=== PATIENT | female | born 1975 | race Caucasian/White ===

== ENCOUNTER 2016-08-28 11:21 | Emergency (ER) | payer MEDICAID ==
[2016-08-28] MEDS ORDERED: KETOROLAC TROMETHAMINE INJ/PF 30 MG/1 ML SDV IV ONE (11:57)
[2016-08-28] MEDS ORDERED: ONDANSETRON HCL INJ/PF 4 MG/2 ML SDV IV ONE (11:57)
--- NOTE | 2016-08-28 11:58 | ER Document Report ---
ED GI/ - General Chief Complaint: Flank Pain Stated Complaint: RIGHT FLANK PAIN Time Seen by Provider: 08/28/16 11:42 Mode of Arrival: Ambulatory Information source: Patient Notes: Patient presents complaining of right flank pain for the past week. Patient reports nausea and vomiting dating that she spit up once some mucus. Patient denies any fever or diarrhea. Patient does report urinary frequency and dysuria. Patient has a history kidney stones in the past and suspects the same today. TRAVEL OUTSIDE OF THE [place] IN LAST 30 DAYS: No - HPI Patient complains to provider of: Flank pain, Vomiting. No: Abdominal pain, Vaginal pain Onset: Last week Timing/Duration: Persistent Quality of pain: Sharp Pain Level: 5 Location: Right flank. No: RLQ Vaginal bleeding (Compared to normal period): None Associated symptoms: Dysuria, Nausea, Urinary frequency, Vomiting. denies: Constipation, Diarrhea, Fever, Urinary hesitancy Exacerbated by: Denies Relieved by: Denies Similar symptoms previously: Yes Recently seen / treated by doctor: No - Related Data Allergies/Adverse Reactions: latex Allergy (Verified 08/28/16 11:33) cillins Allergy (Uncoded 08/28/16 11:33) Past Medical History - General Information source: Patient Last Menstrual Period: mirena - Social History Smoking Status: Former Smoker Frequency of alcohol use: None Drug Abuse: None Occupation: none Lives with: Family Family History: Reviewed & Not Pertinent Patient has suicidal ideation: No Patient has homicidal ideation: No - Medical History Medical History: Other - MS Pulmonary Medical History: Reports: Hx COPD Renal/ Medical History: Reports: Hx Kidney Stones. Denies: Hx Peritoneal Dialysis Musculoskeltal Medical History: Reports Hx Fibromyalgia Past Surgical History: Reports: Hx Section, Hx Gynecologic Surgery - r fallopian tube removed, Hx Urinary Tract Surgery - lithotripsy, renal stents Review of Systems - Review of Systems Constitutional: Recent illness - pneumonia. denies: Fever EENT: No symptoms reported Cardiovascular: No symptoms reported. denies: Chest pain Respiratory: No symptoms reported. denies: Cough Gastrointestinal: Nausea, Vomiting. denies: Abdominal pain, Diarrhea, Poor appetite Genitourinary: Dysuria, Frequency, Flank pain Female Genitourinary: No symptoms reported. denies: , Vaginal discharge Musculoskeletal: Back pain - right Skin: No symptoms reported Hematologic/Lymphatic: No symptoms reported Neurological/Psychological: No symptoms reported Physical Exam - Vital signs Vitals: Temp Pulse Resp BP Pulse Ox 97.8 F 121 H 20 152/113 H 98 08/28/16 11:31 08/28/16 11:31 08/28/16 11:31 08/28/16 11:31 08/28/16 11:31 - General General appearance: Appears well, Alert In distress: None - HEENT Head: Normocephalic, Atraumatic Eyes: Normal Nasal: Normal Mouth/Lips: Normal Mucous membranes: Normal Neck: Normal, Supple. No: Lymphadenopathy - Respiratory Respiratory status: No respiratory distress Chest status: Nontender Breath sounds: Normal. No: Rales, Rhonchi, Stridor, Wheezing Chest palpation: Normal - Cardiovascular Rhythm: Tachycardia Heart sounds: S1 appreciated, S2 appreciated Murmur: No - Abdominal Inspection: Normal Distension: No distension Bowel sounds: Normal Tenderness: Nontender Organomegaly: No organomegaly - Back Back: CVA tenderness - right - Extremities General upper extremity: Normal inspection, Normal ROM General lower extremity: Normal inspection, Normal ROM - Neurological Neuro grossly intact: Yes Cognition: Normal Cb Coma Scale Eye Opening: Spontaneous [place] Coma Scale Verbal: Oriented [place] Coma Scale Motor: Obeys Commands Cb Coma Scale Total: 15 - Psychological Associated symptoms: Normal affect, Normal mood - Skin Skin Temperature: Warm Skin Moisture: Dry Skin Color: Normal Course - Re-evaluation Re-evalutation: 08/28/16 13:[address] Bernal who recommends CT limited imaging of her flank area to further evaluate her pain today. 08/28/16 14:30 - Vital Signs Vital signs: Temp Pulse Resp BP Pulse Ox 97.7 F 90 20 153/109 H 99 08/28/16 13:06 08/28/16 13:06 08/28/16 13:06 08/28/16 13:06 08/28/16 13:06 - Laboratory Result Diagrams: 08/28/16 12:08 08/28/16 12:08 Laboratory results interpreted by me: 08/28/16 08/28/16 08/28/16 12:08 12:08 12:09 WBC 11.1 H RDW 18.3 H Plt Count 524 H Chloride 108 H Carbon Dioxide 19 L Glucose 118 H Direct Bilirubin 0.5 H Urine Protein 30 H Urine Blood LARGE H Labs- Entire Visit 08/28/16 08/28/16 08/28/16 12:08 12:08 12:08 WBC 11.1 H RBC 4.69 Hgb 13.0 Hct 39.4 MCV 84 MCH 27.7 MCHC 33.0 RDW 18.3 H Plt Count 524 H Seg Neutrophils % 71.4 Lymphocytes % 22.6 Monocytes % 4.4 Eosinophils % 0.9 Basophils % 0.7 Absolute Neutrophils 8.0 Absolute Lymphocytes 2.5 Absolute Monocytes 0.5 Absolute Eosinophils 0.1 Absolute Basophils 0.1 Sodium 137.5 Potassium 4.0 Chloride 108 H Carbon Dioxide 19 L Anion Gap 11 BUN 11 Creatinine 0.74 Est GFR ( Amer) > 60 Est GFR (Non-Af Amer) > 60 Glucose 118 H Calcium 9.1 Total Bilirubin 0.7 Direct Bilirubin 0.5 H Indirect Bilirubin Not Reportable Neonat Total Bilirubin Not Reportable AST 17 ALT 26 Alkaline Phosphatase 85 Total Protein 6.4 Albumin 3.6 Lipase 79.4 Serum HCG, Qual NEGATIVE Urine Color Urine Appearance Urine pH Ur Specific [place] Urine Protein Urine Glucose (UA) Urine Ketones Urine Blood Urine Nitrite Urine Bilirubin Urine Urobilinogen Ur Leukocyte Esterase Urine WBC (Auto) Urine RBC (Auto) U Hyaline Cast (Auto) Urine Bacteria (Auto) Squamous Epi Cells Auto Urine Mucus (Auto) Urine Ascorbic Acid 08/28/16 12:09 WBC RBC Hgb Hct MCV MCH MCHC RDW Plt Count Seg Neutrophils % Lymphocytes % Monocytes % Eosinophils % Basophils % Absolute Neutrophils Absolute Lymphocytes Absolute Monocytes Absolute Eosinophils Absolute Basophils Sodium Potassium Chloride Carbon Dioxide Anion Gap BUN Creatinine Est GFR ( Amer) Est GFR (Non-Af Amer) Glucose Calcium Total Bilirubin Direct Bilirubin Indirect Bilirubin Neonat Total Bilirubin AST ALT Alkaline Phosphatase Total Protein Albumin Lipase Serum HCG, Qual Urine Color YELLOW Urine Appearance SLIGHTLY-CLOUDY Urine pH 6.0 Ur Specific [place] 1.027 Urine Protein 30 H Urine Glucose (UA) NEGATIVE Urine Ketones NEGATIVE Urine Blood LARGE H Urine Nitrite NEGATIVE Urine Bilirubin NEGATIVE Urine Urobilinogen NEGATIVE Ur Leukocyte Esterase NEGATIVE Urine WBC (Auto) 4 Urine RBC (Auto) 2 U Hyaline Cast (Auto) 1 Urine Bacteria (Auto) TRACE Squamous Epi Cells Auto 11 Urine Mucus (Auto) RARE Urine Ascorbic Acid NEGATIVE 08/28/16 14:29 08/28/16 14:30 - Diagnostic Test Radiology reviewed: Reports reviewed Discharge - Discharge Clinical Impression: Calyceal renal calculus, Flank pain Condition: Stable Disposition: HOME, SELF-CARE Instructions: Flank Pain ([facility]), Hematuria ([facility]), Oral Narcotic Medication ([facility]) Additional Instructions: Return immediately for any new or worsening symptoms Followup with your primary care provider, call tomorrow to make a followup appointment Follow Up with urologist for further evaluation, call tomorrow for an appointment Prescriptions: Hydrocodone/Acetaminophen [[place] 5-325 Tablet] 1 each PO Q6 PRN #12 tablet PRN Reason: Referrals: [facility] [Provider Group] - Follow up as needed BILL GARLAND MD [[facility]] - Follow up in 3-5 days
[2016-08-28 12:33] LABS: ABSOLUTE BASOPHILS # (AUTO) 0.1 10^3/uL (0.0-0.2); ABSOLUTE EOSINOPHILS # (AUTO) 0.1 10^3/uL (0.0-0.6); ABSOLUTE LYMPHOCYTES (AUTO) 2.5 10^3/uL (0.5-4.7); ABSOLUTE MONOCYTES (AUTO) 0.5 10^3/uL (0.1-1.4); BASOPHILS % (AUTO) 0.7 % (0-2); EOSINOPHILS % (AUTO) 0.9 % (0-6); HEMATOCRIT 39.4 % (36.0-47.0); HGB HCT DIFFERENCE -0.4; LYMPHOCYTES % (AUTO) 22.6 % (13-45); MEAN CORPUSCULAR HEMOGLOBIN 27.7 pg (27.0-33.4); MEAN CORPUSCULAR VOLUME 84 fl (80-97); MONOCYTES % (AUTO) 4.4 % (3-13); RED BLOOD COUNT 4.69 10^6/uL (3.72-5.28); RED CELL DISTRIBUTION WIDTH 18.3 % (11.5-14.0); SEGMENTED NEUTROPHILS % (AUTO) 71.4 % (42-78); WHITE BLOOD COUNT 11.1 10^3/uL (4.0-10.5)
[2016-08-28 12:51] LABS: APPEARANCE,URINE SLIGHTLY-CLOUDY; BILIRUBIN,URINE NEGATIVE (NEGATIVE); GLUCOSE, URINE NEGATIVE (NEGATIVE); KETONES,URINE NEGATIVE (NEGATIVE); LEUKOCYTE ESTERASE,URINE NEGATIVE (NEGATIVE); NITRITE,URINE NEGATIVE (NEGATIVE); PROTEIN,URINE 30 mg/dL (NEGATIVE); URINE SPECIFIC GRAVITY 1.027; UROBILINOGEN,URINE NEGATIVE mg/dL (<2.0)
[2016-08-28 12:54] LABS: ALANINE AMINOTRANSFERASE 26 U/L (9-52); ALBUMIN 3.6 g/dL (3.5-5.0); ALKALINE PHOSPHATASE 85 U/L (38-126); ANION GAP 11 (5-19); ASPARTATE AMINO TRANSFERASE 17 U/L (14-36); BILIRUBIN,DIRECT 0.5 mg/dL (0.0-0.4); BILIRUBIN,TOTAL 0.7 mg/dL (0.2-1.3); BLOOD UREA NITROGEN 11 mg/dL (7-20); CALCIUM 9.1 mg/dL (8.4-10.2); CARBON DIOXIDE 19 mmol/L (22-30); CHLORIDE 108 mmol/L (98-107); CREATININE RESULT 0.74 mg/dL (0.52-1.25); GLUCOSE 118 mg/dL (75-110); LIPASE 79.4 U/L (23-300); SODIUM 137.5 mmol/L (137-145); TOTAL PROTEIN 6.4 g/dL (6.3-8.2)
[2016-08-28] MEDS ORDERED: NORMAL SALINE 1000 ML 1,000 ML IV ONE (13:00)
[2016-08-28] MEDS ORDERED: MORPHINE SULFATE 10 MG/ML INJ IV ONE (13:34)
--- NOTE | 2016-08-28 14:02 | RADIOLOGY REPORT (SQ) ---
EXAM DESCRIPTION: CT LTD RENAL STONE PROTOCOL ON COMPLETED DATE/TIME: 08/28/2016 1:52 pm REASON FOR STUDY: r flank pain COMPARISON: None. TECHNIQUE: CT scan of the abdomen and pelvis performed without intravenous or oral contrast. Images reviewed with lung, soft tissue, and bone windows. Reconstructed coronal and sagittal MPR images revi ewed. All images stored on PACS. All CT scanners at this facility use dose modulation, iterative reconstruction, and/or weight based d osing when appropriate to reduce radiation dose to as low as reasonably achievable (ALARA). [facility]: Dose Right [facility]: CareDose [facility]: Dose Right [facility]: Teradose 4D [facility]: [employer] RADIATION DOSE: 10.57mGy. LIMITATIONS: None. FINDINGS: LOWER CHEST: No significant findings. No nodules or infiltrates. NON-CONTRASTED LIVER, SPLEEN, ADRENALS: Evaluation limited by lack of IV contrast. No identified sign ificant masses. PANCREAS: No masses. No peripancreatic inflammatory changes. GALLBLADDER: No identified stones by CT criteria. No inflammatory changes to suggest cholecystitis. RIGHT KIDNEY AND URETER: No suspicious masses. Assessment limited by lack of IV contrast. Small doug yceal calcifications. No hydronephrosis or hydroureter. LEFT KIDNEY AND URETER: No suspicious masses. Assessment limited by lack of IV contrast. Small romina ceal calcifications. No hydronephrosis or hydroureter. AORTA AND RETROPERITONEUM: No aneurysm. No retroperitoneal masses or adenopathy. BOWEL AND PERITONEAL CAVITY: No obvious masses or inflammatory changes. No free fluid. APPENDIX: Surgically absent. PELVIS, BLADDER, AND ABDOMINAL WALL:No abnormal masses. No free fluid. Bladder normal. BONES: No significant findings. OTHER: No other significant finding. IMPRESSION: SMALL NONOBSTRUCTING CALYCEAL CALCULI IN BOTH KIDNEYS. NO URETERAL CALCULI OR OBSTRUCTI VE UROPATHY. NO OTHER SIGNIFICANT OR ACUTE PROCESS IN THE ABDOMEN OR PELVIS. TECHNICAL DOCUMENTATION: JOB ID: [id number] Quality ID # [id number]: Final reports with documentation of one or more dose reduction techniques (e.g., Au tomated exposure control, adjustment of the mA and/or kV according to patient size, use of iterative reconstruction technique) 2010 [employer]- All Rights Reserved
[2016-08-28 14:50] VITALS: BP 150/96
== END 2016-08-28 14:50 | disposition home or self-care (01) ==
LOC: ER 11:21
DX: N20.0 Calculus of kidney (principal); R10.9 Unspecified abdominal pain; R11.2 Nausea with vomiting, unspecified; J44.9 Chronic obstructive pulmonary disease, unspecified; G35 Multiple sclerosis; Z87.891 Personal history of nicotine dependence; Z91.040 Latex allergy status; Z88.0 Allergy status to penicillin; Z87.442 Personal history of urinary calculi
CPT/HCPCS: 99284; 96361; 96374; 96375; 36415; 83690; 84703; 85025; 80053; 81001; 76380; J1885; J2270; J2405; J7030

== ENCOUNTER 2016-11-23 14:21 | Emergency (ER) | payer MEDICAID ==
[2016-11-23] MEDS ORDERED: HYDROCODONE/ACETAMINOPHEN 5-325 MG TABLET PO ONE (15:15)
--- NOTE | 2016-11-23 15:15 | ER Document Report ---
ED General Pain - General Chief Complaint: Pain All Over Stated Complaint: PAIN ALL OVER Time Seen by Provider: 11/23/16 15:07 Mode of Arrival: Ambulatory Information source: Patient Notes: Pt is a 41 year old female who presents to the ER for "pain all over" from her MS. She states she's had blood pressure as high as 188/90s today because of the pain. She says the worse part of her pain is in her back. She takes tylenol 500mg for pain. Is supposed to be going to pain management. TRAVEL OUTSIDE OF THE [place] IN LAST 30 DAYS: No - Related Data Allergies/Adverse Reactions: latex Allergy (Verified 11/23/16 15:07) cillins Allergy (Uncoded 11/23/16 15:07) Past Medical History - General Information source: Patient - Social History Smoking Status: Current Every Day Smoker Chew tobacco use (# tins/day): No Frequency of alcohol use: None Drug Abuse: None Family History: Reviewed & Not Pertinent Pulmonary Medical History: Reports: Hx COPD Renal/ Medical History: Reports: Hx Kidney Stones. Denies: Hx Peritoneal Dialysis Musculoskeltal Medical History: Reports Hx Fibromyalgia Past Surgical History: Reports: Hx Section, Hx Gynecologic Surgery - r fallopian tube removed, Hx Urinary Tract Surgery - lithotripsy, renal stents Review of Systems - Review of Systems Constitutional: No symptoms reported EENT: No symptoms reported Cardiovascular: No symptoms reported Respiratory: No symptoms reported Gastrointestinal: No symptoms reported Genitourinary: No symptoms reported Female Genitourinary: No symptoms reported Musculoskeletal: See HPI Skin: No symptoms reported Hematologic/Lymphatic: No symptoms reported Neurological/Psychological: No symptoms reported Physical Exam - Vital signs Vitals: Temp Pulse Resp BP Pulse Ox 97.7 F 88 20 170/93 H 98 11/23/16 14:41 11/23/16 14:41 11/23/16 14:41 11/23/16 14:41 11/23/16 14:41 - Notes Notes: PHYSICAL EXAMINATION: GENERAL: Appears uncomfortable, but in no acute distress. HEAD: Atraumatic, normocephalic. EYES: Pupils equal round and reactive to light, extraocular movements intact, sclera anicteric, conjunctiva are normal. NECK: Normal range of motion, supple without lymphadenopathy LUNGS: CTAB and equal. No wheezes rales or rhonchi. HEART: Regular rate and rhythm without murmurs ABDOMEN: Soft, no tenderness. No guarding, no rebound BACK: Lumbar vertebral tenderness, tender over entire low back, decreased range of motion due to pain GI/: no CVA tenderness EXTREMITIES: Normal range of motion, no pitting edema. No cyanosis. NEUROLOGICAL: Cranial nerves grossly intact. Normal sensory/motor exams. PSYCH: Normal mood, normal affect. SKIN: Warm, Dry, normal turgor, no rashes or lesions noted Course - Re-evaluation Re-evalutation: 11/23/16 21:04 I did advise patient that I would not give her a prescription for any narcotic medication but would give her something while she was here. I did put her on a prednisone taper for her possible MS flare. - Vital Signs Vital signs: Temp Pulse Resp BP Pulse Ox 97.8 F 80 18 148/133 H 98 11/23/16 15:24 11/23/16 15:24 11/23/16 15:24 11/23/16 15:24 11/23/16 15:24 Discharge - Discharge Clinical Impression: Total body pain Back pain Qualifiers: Back pain location: low back pain Chronicity: chronic Back pain laterality: midline Sciatica presence: without sciatica Qualified Code(s): M54.5 - Low back pain Condition: Stable Disposition: HOME, SELF-CARE Additional Instructions: FOLLOW-UP CARE: If you have been referred to a physician for follow-up care, call the physician s office for an appointment as you were instructed or within the next two days. If you experience worsening or a significant change in your symptoms, notify the physician immediately or return to the Emergency Department at any time for re-evaluation. Prescriptions: Prednisone [Sterapred Ds] 1 pkg PO ASDIR PRN 12 Days [email or web address] PRN Reason:
[2016-11-23 15:32] VITALS: BP 148/133
== END 2016-11-23 15:29 | disposition home or self-care (01) ==
LOC: ER 14:21
DX: G35 Multiple sclerosis (principal); M54.5 Low back pain; J44.9 Chronic obstructive pulmonary disease, unspecified; F17.200 Nicotine dependence, unspecified, uncomplicated; Z91.040 Latex allergy status; Z88.0 Allergy status to penicillin
CPT/HCPCS: 99283

== ENCOUNTER 2017-02-05 00:46 | Emergency (ER) | payer MEDICAID ==
[2017-02-05 01:00] VITALS: BP 181/113
[2017-02-05] MEDS ORDERED: ACETAMINOPHEN 325 MG TABLET PO ONE (01:33)
[2017-02-05] MEDS ORDERED: MORPHINE SULFATE IR 15 MG TABLET PO ONE (01:33)
[2017-02-05] MEDS ORDERED: IBUPROFEN 600 MG TABLET PO ONE (01:33)
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
== END 2017-02-05 01:58 | disposition home or self-care (01) ==
LOC: ER 00:46
DX: S09.90XA Unspecified injury of head, initial encounter (principal); S01.81XA Laceration without foreign body of other part of head, initial encounter; Y04.0XXA Assault by unarmed brawl or fight, initial encounter; J44.9 Chronic obstructive pulmonary disease, unspecified; F17.200 Nicotine dependence, unspecified, uncomplicated; Z87.442 Personal history of urinary calculi; Z91.040 Latex allergy status; Z88.0 Allergy status to penicillin
CPT/HCPCS: 99283; J3490 ×2

== ENCOUNTER 2017-02-20 02:14 | Emergency (ER) | payer MEDICAID ==
[2017-02-20] MEDS ORDERED: ACETAMINOPHEN WITH CODEINE #3 TABLET PO ONE (03:04)
[2017-02-20] MEDS ORDERED: DOXYCYCLINE HYCLATE 100 MG TABLET PO ONE (03:05)
--- NOTE | 2017-02-20 03:11 | ER Document Report ---
ED General - General Chief Complaint: Neck Pain < 24hrs old Stated Complaint: NECK PAIN Time Seen by Provider: 02/20/17 02:49 Mode of Arrival: Ambulatory Information source: Patient TRAVEL OUTSIDE OF THE [place] IN LAST 30 DAYS: No - HPI Notes: 42-year-old female with history of fibromyalgia and multiple sclerosis presents with right-sided neck pain. She has noted knots and painful areas over the right posterior portion of her neck for the last 2 days. She states they are very painful despite taking ibuprofen at home. Denies fever or systemic symptoms. She did have head trauma a few days back but states she had no injury to her neck at that point. She denies any other new symptoms, focal weakness numbness or tingling. Denies scalp laceration or pain. - Related Data Allergies/Adverse Reactions: latex Allergy (Verified 11/23/16 15:07) cillins Allergy (Uncoded 11/23/16 15:07) Past Medical History - Social History Smoking Status: Current Every Day Smoker Chew tobacco use (# tins/day): No Drug Abuse: None Family History: Reviewed & Not Pertinent Patient has suicidal ideation: No Patient has homicidal ideation: No Pulmonary Medical History: Reports: Hx COPD Renal/ Medical History: Reports: Hx Kidney Stones. Denies: Hx Peritoneal Dialysis Musculoskeltal Medical History: Reports Hx Fibromyalgia Past Surgical History: Reports: Hx Section, Hx Gynecologic Surgery - r fallopian tube removed, Hx Urinary Tract Surgery - lithotripsy, renal stents Review of Systems - Review of Systems -: Yes All other systems reviewed and negative Physical Exam - Vital signs Vitals: Temp Pulse Resp BP Pulse Ox 98 F 132 H 18 153/96 H 98 02/20/17 02:20 02/20/17 02:20 02/20/17 02:20 02/20/17 02:20 02/20/17 02:20 - Notes Notes: GENERAL: VS as per nursing doc. appears older than stated age, well-nourished and in no acute distress. HEAD: Atraumatic, normocephalic. EYES: Pupils equal round and reactive to light, extraocular movements intact, sclera anicteric, no conjunctival injection or discharge. ENT: Nares patent, oropharynx clear without exudates, moist mucous membranes. There are mobile nodes noted in the right posterior triangle with the largest being approximately 1 cm. Very tender but no overlying erythema or separation. There are some areas of excoriation mild erythema more superiorly toward the mastoid region but the mastoid itself is nontender and not affected. Evaluation of the scalp otherwise show no lesions in the hair. NECK: Normal range of motion, supple without lymphadenopathy. LUNGS: Coarse with decreased breath sounds bilaterally HEART: Regular rhythm, no murmurs, heart rate 102 on recheck ABDOMEN: Soft, non-tender, normoactive bowel sounds. No guarding, no rebound. No masses appreciated. No [place] sign. EXTREMITIES: Normal range of motion, no calf tenderness, no edema. NEUROLOGICAL: No gross motor or sensory abnormalities. Cranial nerves intact. PSYCH: Normal mood, normal affect. SKIN: Warm, dry, normal turgor, please see ENT. Course - Re-evaluation Re-evalutation: 02/20/17 03:19 This does not appear to be trauma related as there is no midline tenderness and has clearly palpable posterior lymph nodes. I do have some concern as there are some minimal cellulitic areas that appear to be more excoriations near the right mastoid just superior. We will place her on antibiotics and have her get close follow-up. She understands warning signs to watch for. Tachycardia had essentially resolved from the initial triage note at the time of my evaluation. - Vital Signs Vital signs: Temp Pulse Resp BP Pulse Ox 98 F 132 H 18 153/96 H 98 02/20/17 02:20 02/20/17 02:20 02/20/17 02:20 02/20/17 02:20 02/20/17 02:20 Discharge - Discharge Clinical Impression: Cervical adenitis Condition: Good Disposition: HOME, SELF-CARE Instructions: Cervical Lymphadenitis ([facility]) Additional Instructions: Return for any problem or concern. Finish all of the antibiotics. Return for Emergency or concern. Continue anti-inflammatories such as Ibuprofen or Aleve. Follow-up with your physician in the next 2 days for recheck. You have been prescribed a prescription for narcotics. Narcotics are very helpful in relieving your pain. Adequate pain control is the goal for the medical use of narcotics. Please be aware that prescription narcotics also have the potential for abuse. People become addicted to these substances because of the general sense of wellbeing that they induce. This coupled with a significant reduction in tension, anxiety and aggression provides a stimulating seductive quality to these drugs. Once your pain is under control we encourage you to discard your unused narcotics. Prescriptions: Acetaminophen with Codeine [Tylenol #3 Tablet] 1 - 2 each PO Q6HP PRN #14 tablet PRN Reason: For Pain Acetaminophen with Codeine [Tylenol #3 Tablet] 1 - 2 each PO Q6HP PRN #14 tablet PRN Reason: For Pain Doxycycline Hyclate 100 mg PO BID #14 capsule
[2017-02-20 03:59] VITALS: BP 120/90
== END 2017-02-20 03:27 | disposition home or self-care (01) ==
LOC: ER 02:14
DX: I88.9 Nonspecific lymphadenitis, unspecified (principal); M54.2 Cervicalgia; G35 Multiple sclerosis; J44.9 Chronic obstructive pulmonary disease, unspecified; F17.200 Nicotine dependence, unspecified, uncomplicated; Z91.040 Latex allergy status; Z88.0 Allergy status to penicillin
CPT/HCPCS: 99283; J3490

== ENCOUNTER 2017-05-29 15:17 | Emergency (ER) | payer MEDICAID ==
[2017-05-29] MEDS ORDERED: NORMAL SALINE 1000 ML 1,000 ML IV ONE (16:16)
--- NOTE | 2017-05-29 16:20 | ER Document Report ---
ED Medical Screen (RME) - General Chief Complaint: Dizziness Stated Complaint: ALTERED MENTAL STATUS Time Seen by Provider: 05/29/17 16:14 Mode of Arrival: Ambulatory Information source: Patient Notes: Patient is a 42-year-old female with a history of UTIs and kidney stones presents to the emergency department complaining of pelvic pain. Patient states that she was diagnosed with a UTI on the and prescribed antibiotics but her symptoms have persisted. Patient states that she is in constant pelvic pain with associated symptoms of dysuria and fevers. Mother who is at bedside states that the patient has also been confused further stating that the patient does not remember crying prior to arrival or answering her questions normally. At bedside patient is alert and oriented3 TRAVEL OUTSIDE OF THE [place] IN LAST 30 DAYS: No - Related Data Allergies/Adverse Reactions: latex Allergy (Verified 05/29/17 15:17) cillins Allergy (Uncoded 05/29/17 15:17) Past Medical History - General Information source: Patient - Social History Cigarette use (# per day): Yes Family history: Reviewed & Not Pertinent Pulmonary Medical History: Reports: Hx COPD Renal/ Medical History: Reports: Hx Kidney Stones Musculoskeltal Medical History: Reports Hx Fibromyalgia Past Surgical History: Reports: Hx Section, Hx Gynecologic Surgery - r fallopian tube removed, Hx Urinary Tract Surgery - lithotripsy, renal stents Physical Exam - Vital signs Vitals: Temp Pulse Resp BP Pulse Ox 98.3 F 114 H 18 119/97 H 99 05/29/17 15:42 05/29/17 15:42 05/29/17 15:42 05/29/17 15:42 05/29/17 15:42 - Notes Notes: GENERAL: Alert, interacts well. No acute distress. HEAD: Normocephalic, Atraumatic. NECK: Full range of motion. Supple. Trachea midline. LUNGS: Clear to auscultation bilaterally, no wheezes, rales, or rhonchi. No respiratory distress. HEART: Tachycardic. No murmurs, gallops, or rubs. ABDOMEN: Soft, non-tender. Non-distended. Bowel sounds present in all 4 quadrants. EXTREMITIES: Moves all four extremities spontaneously. Course - Vital Signs Vital signs: Temp Pulse Resp BP Pulse Ox 98.3 F 114 H 18 119/97 H 99 05/29/17 15:42 05/29/17 15:42 05/29/17 15:42 05/29/17 15:42 05/29/17 15:42 Scribe Documentation - Scribe Written by Cruz:: Cruz Guerrero, 05/29/2017 16:19 acting as scribe for :: Andrea
--- NOTE | 2017-05-29 17:02 | ER Document Report ---
ED Dizziness/Weakness - General Chief Complaint: Dizziness Stated Complaint: ALTERED MENTAL STATUS Time Seen by Provider: 05/29/17 16:14 Mode of Arrival: Ambulatory Notes: The patient is a 42-year-old female, past medical history frequent UTIs and kidney stones, multiple sclerosis, presents with dysuria, pelvic burning and mild confusion. She started taking Cipro 12 days ago and says that when she takes Cipro, she feels this way. Her confusion has resolved, but she is still having dysuria. Patient was taking Tylenol for her pain relief. Patient denies fevers, flank pain, nausea, vomiting, hallucinations, headache, blurry vision, numbness, tingling, concern for STDs, vaginal bleeding or discharge. TRAVEL OUTSIDE OF THE [place] IN LAST 30 DAYS: No - Related Data Allergies/Adverse Reactions: latex Allergy (Verified 05/29/17 15:17) cillins Allergy (Uncoded 05/29/17 15:17) Past Medical History - General Information source: Patient - Social History Smoking Status: Never Smoker Cigarette use (# per day): Yes Chew tobacco use (# tins/day): No Frequency of alcohol use: None Drug Abuse: None Family History: Reviewed & Not Pertinent Patient has suicidal ideation: No Patient has homicidal ideation: No Pulmonary Medical History: Reports: Hx COPD Renal/ Medical History: Reports: Hx Kidney Stones. Denies: Hx Peritoneal Dialysis Musculoskeltal Medical History: Reports Hx Fibromyalgia Past Surgical History: Reports: Hx Section, Hx Gynecologic Surgery - r fallopian tube removed, Hx Urinary Tract Surgery - lithotripsy, renal stents Review of Systems - Review of Systems Notes: REVIEW OF SYSTEMS: CONSTITUTIONAL: -fevers, -chills EENT: -eye pain, -difficulty swallowing, -nasal congestion CARDIOVASCULAR: -chest pain, -syncope. RESPIRATORY: -cough, -SOB GASTROINTESTINAL: -abdominal pain, -nausea, -vomiting, -diarrhea GENITOURINARY: +dysuria, -hematuria MUSCULOSKELETAL: -back pain, -neck pain SKIN: -rash or skin lesions. HEMATOLOGIC: -easy bruising or bleeding. LYMPHATIC: -swollen, enlarged glands. NEUROLOGICAL: -loss of consciousness, -headache, -neurologic symptoms PSYCHIATRIC: -anxiety, -depression. ALL OTHER SYSTEMS REVIEWED AND NEGATIVE. Physical Exam - Vital signs Vitals: Temp Pulse Resp BP Pulse Ox 98.3 F 114 H 18 119/97 H 99 05/29/17 15:42 05/29/17 15:42 05/29/17 15:42 05/29/17 15:42 05/29/17 15:42 - Notes Notes: PHYSICAL EXAMINATION: GENERAL: Well-appearing, well-nourished and in no acute distress. HEAD: Atraumatic, normocephalic. EYES: Pupils equal round and reactive to light, extraocular movements intact, sclera anicteric, conjunctiva are normal. ENT: nares patent, oropharynx clear without exudates. Moist mucous membranes. NECK: Normal range of motion, supple without lymphadenopathy LUNGS: Breath sounds clear to auscultation bilaterally and equal. No wheezes rales or rhonchi. HEART: Regular rate and rhythm without murmurs : (chaperoned by LUZ MARIA Grey) no vaginal discharge or bleeding, nontender uterus and adnexa, no CMT ABDOMEN: Soft, nontender, normoactive bowel sounds. No guarding, no rebound. No masses appreciated. EXTREMITIES: Normal range of motion, no pitting or edema. No cyanosis. NEUROLOGICAL: Cranial nerves grossly intact. Normal speech. Normal sensory and motor exams. PSYCH: Normal mood, normal affect. SKIN: Warm, Dry, normal turgor, no rashes or lesions noted. Course - Re-evaluation Re-evalutation: Patient appears well and in no acute distress. Her initial tachycardia in triage resolved. Her urinalysis does not show any evidence of a urinary tract infection. Patient's blood work is remarkable for slightly elevated LFTs, but she does not have any RUQ pain or tenderness. She also has thrombocytosis, but no signs or symptoms of increased viscosity. Will have her platelet count and LFTs repeated in 1 week by her primary care physician. Patient provided with Pyridium and given very strict return precautions. - Vital Signs Vital signs: Temp Pulse Resp BP Pulse Ox 97.7 F 114 H 18 119/97 H 99 05/29/17 18:27 05/29/17 15:42 05/29/17 15:42 05/29/17 15:42 05/29/17 15:42 - Laboratory Result Diagrams: 05/29/17 16:25 05/29/17 16:25 Laboratory results interpreted by me: 05/29/17 05/29/17 05/29/17 16:25 16:25 16:25 RDW 18.7 H Plt Count 1027 H* Potassium 3.5 L Carbon Dioxide 19 L Est GFR (Non-Af Amer) 53 L Glucose 115 H AST 98 H ALT 126 H Alkaline Phosphatase 154 H Urine Protein 30 H Urine Urobilinogen 2.0 H Acetaminophen 05/29/17 16:25 RDW Plt Count Potassium Carbon Dioxide Est GFR (Non-Af Amer) Glucose AST ALT Alkaline Phosphatase Urine Protein Urine Urobilinogen Acetaminophen < 10 L Discharge - Discharge Clinical Impression: Dysuria, Thrombocythemia, Elevated LFTs Condition: Stable Disposition: HOME, SELF-CARE Additional Instructions: Have your liver enzymes and platelets rechecked next week by her primary care physician as they were elevated today. Take the Pyridium as instructed to help with your pain. Follow-up with your primary care physician next week to recheck your symptoms. URINARY ANESTHETIC AGENT: You have been given a medication (Pyridium) for urinary tract discomfort. This medicine numbs the lining of the bladder and urethra, resulting in less pain, burning, and urgency. You may take it as needed, according to instructions. When the symptoms resolve, you can stop this medication (be sure to continue any other medications the doctor has given you). This medicine turns the urine a dark orange. It may stain underwear. Occasionally, it can cause nausea. Return for evaluation if there are any unexpected effects, such as itching, hives, or shortness of breath. FOLLOW-UP CARE: If you have been referred to a physician for follow-up care, call the physician s office for an appointment as you were instructed or within the next two days. If you experience worsening or a significant change in your symptoms, notify the physician immediately or return to the Emergency Department at any time for re-evaluation. Prescriptions: Phenazopyridine HCl [Pyridium 200 mg Tablet] 200 mg PO TID #15 tablet Forms: Elevated Blood Pressure Referrals: [facility] [Outside] - Follow up as needed
[2017-05-29 17:09] LABS: HEMATOCRIT 41.1 % (36.0-47.0); MEAN CORPUSCULAR HEMOGLOBIN 28.1 pg (27.0-33.4); MEAN CORPUSCULAR HGB CONC 33.9 g/dL (32.0-36.0); MEAN CORPUSCULAR VOLUME 83 fl (80-97); RED BLOOD COUNT 4.98 10^6/uL (3.72-5.28); RED CELL DISTRIBUTION WIDTH 18.7 % (11.5-14.0); WHITE BLOOD COUNT 8.6 10^3/uL (4.0-10.5)
[2017-05-29 17:14] LABS: APPEARANCE,URINE SLIGHTLY-CLOUDY; BILIRUBIN,URINE NEGATIVE (NEGATIVE); COLOR,URINE YELLOW; GLUCOSE, URINE NEGATIVE (NEGATIVE); KETONES,URINE NEGATIVE (NEGATIVE); LEUKOCYTE ESTERASE,URINE NEGATIVE (NEGATIVE); NITRITE,URINE NEGATIVE (NEGATIVE); PROTEIN,URINE 30 mg/dL (NEGATIVE); URINE SPECIFIC GRAVITY 1.017
[2017-05-29 17:20] LABS: ALANINE AMINOTRANSFERASE 126 U/L (9-52); ALBUMIN 4.1 g/dL (3.5-5.0); ALKALINE PHOSPHATASE 154 U/L (38-126); ANION GAP 15 (5-19); ASPARTATE AMINO TRANSFERASE 98 U/L (14-36); BILIRUBIN,DIRECT 0.3 mg/dL (0.0-0.4); BILIRUBIN,TOTAL 0.3 mg/dL (0.2-1.3); BLOOD UREA NITROGEN 19 mg/dL (7-20); CALCIUM 9.4 mg/dL (8.4-10.2); CARBON DIOXIDE 19 mmol/L (22-30); CHLORIDE 106 mmol/L (98-107); GLUCOSE 115 mg/dL (75-110); POTASSIUM 3.5 mmol/L (3.6-5.0); SODIUM 139.6 mmol/L (137-145); TOTAL PROTEIN 7.8 g/dL (6.3-8.2)
[2017-05-29 17:41] LABS: ABSOLUTE LYMPHOCYTES# (MANUAL) 2.4 10^3/uL (0.5-4.7); ABSOLUTE MONOCYTES # (MANUAL) 0.8 10^3/uL (0.1-1.4); ABSOLUTE NEUTROPHILS# (MANUAL) 5.2 10^3/uL (1.7-8.2); BASOPHILS % (MANUAL) 0 % (0-2); EOSINOPHILS % (MANUAL) 2 % (0-6); LYMPHOCYTES % (MANUAL) 28 % (13-45); MONOCYTES % (MANUAL) 9 % (3-13); SEGMENTED NEUTROPHILS % (MAN) 61 % (42-78); TOTAL CELLS COUNTED 100
[2017-05-29 17:42] LABS: ANISOCYTOSIS 1+; PLATELET COMMENT INCREASED; PLATELET COUNT 1027 10^3/uL (150-450); POIKILOCYTOSIS SLIGHT; TOXIC GRANULATION SLIGHT
[2017-05-29] MEDS ORDERED: PHENAZOPYRIDINE HCL 200 MG TABLET PO ONE (17:51)
[2017-05-29 18:33] LABS: T.VAGINALIS (WET MOUNT) NO TRICHOMONAS SEEN; WBCS (WET MOUNT) RARE WBCS SEEN; YEAST (WET MOUNT) NO YEAST SEEN
[2017-05-29 19:56] LABS: CHLAM PCR NOT DETECTED (NOT DETECT); GON PCR NOT DETECTED (NOT DETECT)
[2017-05-29 20:08] VITALS: BP 128/99
[2017-05-30 11:38] LABS: PATH REVIEW PATHOLOGIST REVIEWED
== END 2017-05-29 20:04 | disposition home or self-care (01) ==
LOC: ER 15:17
DX: R30.0 Dysuria (principal); D69.6 Thrombocytopenia, unspecified; R79.89 Other specified abnormal findings of blood chemistry; R42 Dizziness and giddiness; R41.82 Altered mental status, unspecified; J44.9 Chronic obstructive pulmonary disease, unspecified; Z87.440 Personal history of urinary (tract) infections; Z87.442 Personal history of urinary calculi; Z91.040 Latex allergy status; Z88.0 Allergy status to penicillin
CPT/HCPCS: 99284; 96360; 36415; 87210; 80307; 84703; 85025; 80053; 81001; 87491; 87591; J7030

== ENCOUNTER 2017-10-22 22:47 | Emergency (ER) | payer MEDICAID ==
--- NOTE | 2017-10-22 23:02 | ER Document Report ---
ED General - General Stated Complaint: POSSIBLE OVERDOSE Time Seen by Provider: 10/22/17 22:55 Notes: Patient is a 42-year-old female who became apneic because she started what she thought was cocaine but was actually heroin. Patient now says that she is nauseous and has been vomiting. She is given Narcan by the paramedics. There was some bystander CPR. She has a history of fibromyalgia as well as MS. She has no other complaints at this time. She says she does not do drugs on a regular basis but only when she "parties". TRAVEL OUTSIDE OF THE [place] IN LAST 30 DAYS: No - Related Data Allergies/Adverse Reactions: latex Allergy (Verified 05/29/17 15:17) cillins Allergy (Uncoded 05/29/17 15:17) Past Medical History - Social History Smoking Status: Current Every Day Smoker Frequency of alcohol use: None Drug Abuse: Cocaine, Heroin Family History: Reviewed & Not Pertinent Pulmonary Medical History: Reports: Hx COPD Renal/ Medical History: Reports: Hx Kidney Stones. Denies: Hx Peritoneal Dialysis GI Medical History: Reports: Hx Gastroesophageal Reflux Disease Musculoskeletal Medical History: Reports Hx Fibromyalgia Past Surgical History: Reports: Hx Section, Hx Gynecologic Surgery - r fallopian tube removed, Hx Urinary Tract Surgery - lithotripsy, renal stents Review of Systems - Review of Systems Notes: My Normal Review Basic REVIEW OF SYSTEMS: CONSTITUTIONAL : Denies fever, chills, or sweats. Denies recent illness. EENT: Denies eye, ear, throat, or mouth pain or symptoms. Denies nasal or sinus congestion. CARDIOVASCULAR: Some palpable pain to chest from CPR RESPIRATORY: Denies cough, cold, or chest congestion. Denies shortness of breath, difficulty breathing, or wheezing. GASTROINTESTINAL: Denies abdominal pain. Denies nausea, vomiting, or diarrhea. MUSCULOSKELETAL: Chronic muscular pain. SKIN: Denies rash or skin lesions. NEUROLOGICAL: Denies altered mental status or loss of consciousness. Denies headache. Denies weakness or paralysis or loss of use of either side. Denies problems with gait or speech. Denies sensory or motor loss. ALL OTHER SYSTEMS REVIEWED AND NEGATIVE. Physical Exam - Vital signs Vitals: Resp Pulse Ox 15 94 10/22/17 22:52 10/22/17 22:52 - Notes Notes: General Appearance: Well nourished, alert, cooperative, no acute distress, mild obvious discomfort. Vitals: reviewed, See vital signs table. Head: no swelling or tenderness to the head Eyes: PERRL, EOMI, Conjuctiva clear Mouth: No decreasd moisture Neck: Supple, no neck tenderness, No thyromegaly Chest wall: Tenderness palpation of chest wall. Lungs: No wheezing, No rales, No rhonci, No accessory muscle use, good air exchange bilaterally. Heart: Normal rate, Regular rythm, No murmur, no rub Abdomen: Normal BS, soft, No rigidity, No abdominal tenderness, No guarding, no rebound, no abdominal masses, no organomegaly Extremities: strength 5/5 in all extremities, good pulses in all extremities, no swelling or tenderness in the extremities, no edema. Skin: warm, dry, appropriate color, no rash Neuro: speech clear, oriented x 3, normal affect, responds appropriately to questions. Course - Re-evaluation Re-evalutation: 10/23/17 06:24 Patient has been monitored for over 2 hours has not had any hypoxemia recurrent somnolence. She has been tachycardic which I think is a result of her receiving the Narcan and also her having chronic pain. Patient says that she has pain over her entire body because of her MS. I suspect she is going through opiate withdrawal after receiving the Narcan. Patient initially denied any opiate use but then she was talking to me about different pain medications. I offered to give her some Tylenol for pain. Patient said that she cannot take Tylenol she is allergic to it. I asked her what her allergies and then she said that makes her vomit. She also mentions that her doctor told her she cannot take it does affect her kidneys. I informed her that Tylenol has no effect on the kidneys. Patient then said that she can take Percocet. I informed her that Percocet has Tylenol in it and that what she previously told me did not make sense. Patient then said that she is not truly allergic to Tylenol and that it just does not work for her. Do not feel that given the patient opiates would be a appropriate. I think this would possibly just lead to more abuse of the opiates potentially could cause her harm. I have written prescription for Narcan in case she does ever use heroin again and stops breathing. I informed her follow-up closely with her primary care doctor. I encouraged her return to ER if she has recurrent vomiting, difficulty breathing , or she feels unwell. Patient agrees with plan will be discharged home. Dictation of this chart was performed using voice recognition software; therefore, there may be some unintended grammatical errors. - Vital Signs Vital signs: Temp Pulse Resp BP Pulse Ox 98.1 F 26 H 129/86 H 95 10/23/17 02:02 10/23/17 02:02 10/23/17 02:02 10/23/17 02:02 - EKG Interpretation by Me Additional EKG results interpreted by me: 10/22/17 23:00 EKG is reviewed and interpreted by me. EKG shows sinus tachycardia with a rate of [address] segment elevation or depression. No ischemic T-wave inversions. IA interval, QRS duration, QTc intervals are within normal range. No old EKG available for comparison. Discharge - Discharge Clinical Impression: Opiate overdose Qualifiers: Encounter type: initial encounter Injury intent: accidental or unintentional Qualified Code(s): T40.601A - Poisoning by unspecified narcotics, accidental ( unintentional), initial encounter Chronic pain Qualifiers: Chronic pain type: other chronic pain Qualified Code(s): G89.29 - Other chronic pain Condition: Good Disposition: HOME, SELF-CARE Additional Instructions: Please follow up closely with your doctor in regards to further pain control. Please do not do any illegal drugs and never take medications that are not prescribed to you. We understand that sometimes people do end up still doing heroin or other opiate medications. I have prescribed you Narcan. People will still potentially overdose or take too much of an opiate medication. Please keep the Narcan with you so as if you do overdose again you have a medication that can reverse the overdose so that you do not stop breathing. If you have to use the Narcan you should return to the ER immediately. Return to the ER immediately if you develop difficulty breathing or feel more sleepy than usual. Prescriptions: Naloxone HCl [Narcan] 4 mg NS MIGUEL #1 spray Referrals: [facility] [Primary Care Provider] - Follow up as needed
[2017-10-22] MEDS ORDERED: PROMETHAZINE HCL INJ 25 MG/1 ML VIAL IM ONE (23:38)
[2017-10-23] MEDS ORDERED: KETOROLAC TROMETHAMINE INJ/PF 30 MG/1 ML SDV IM ONE (01:09)
--- NOTE | 2017-10-23 01:24 | RADIOLOGY REPORT (SQ) ---
EXAM DESCRIPTION: XR CHEST 1 VIEW COMPLETED DATE/TME: 10/22/2017 22:56 CLINICAL HISTORY: 42 years, Female, overdose COMPARISON: None. NUMBER OF VIEWS: One TECHNIQUE: AP view of the chest LIMITATIONS: None. FINDINGS: The lungs are clear. The heart is normal in size. There is no pneumothorax or pleural effusion. There is no acute fracture IMPRESSION: No acute cardiopulmonary abnormality 2010 [employer]- All Rights Reserved
[2017-10-23 02:26] VITALS: BP 129/86
--- NOTE | 2017-10-23 10:06 | EKG REPORT ---
SEVERITY:- BORDERLINE ECG - SINUS TACHYCARDIA PROBABLE LEFT ATRIAL ABNORMALITY : Confirmed by: Pastora Rodriguez 23-Oct-2017 10:06:19
== END 2017-10-23 02:25 | disposition home or self-care (01) ==
LOC: ER 22:47
DX: T40.1X1A Poisoning by heroin, accidental (unintentional), initial encounter (principal); R11.2 Nausea with vomiting, unspecified; F14.10 Cocaine abuse, uncomplicated; R00.0 Tachycardia, unspecified; M79.7 Fibromyalgia; G89.29 Other chronic pain; J44.9 Chronic obstructive pulmonary disease, unspecified; R07.9 Chest pain, unspecified; F17.200 Nicotine dependence, unspecified, uncomplicated; Z91.040 Latex allergy status; Z88.0 Allergy status to penicillin
CPT/HCPCS: 93005; 99284; 96372; 71045; 93010; J1885; J2550